=== PATIENT | male | born 1945 | race Caucasian/White ===

== ENCOUNTER 2019-09-12 16:02 | Emergency (ER) | payer MEDICARE, MEDICAID ==
[~2019-09-12] VITALS: Ht 188 cm; Wt 99.1 kg
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
--- NOTE | 2019-09-12 16:34 | NUR ---
BRIAN LEIJA AT BEDSIDE FOR EVAL.
--- NOTE | 2019-09-12 17:46 | NUR ---
ALL TESTS RESULTED PT IS UP FOR RECHECK AT THIS TIME.
--- NOTE | 2019-09-12 17:57 | NUR ---
PT AMBULATED TO THE BR W/ A STEADY GAIT.
[2019-09-12 18:09] VITALS: BP 124/79
[2019-09-12] MEDS ORDERED: NEOSPORIN OINT. PKT 1 PACKET ONE (18:21)
--- NOTE | 2019-09-12 18:40 | NUR ---
Patient given discharge instructions and they have confirmed that they understand the instructions. Patient ambulatory with steady gait.
== END 2019-09-12 19:05 | disposition home or self-care (01) ==
LOC: ED 18:40
DX: S80.211A Abrasion, right knee, initial encounter (principal); S60.512A Abrasion of left hand, initial encounter; M25.511 Pain in right shoulder; M79.661 Pain in right lower leg; M25.551 Pain in right hip; V03.99XA Pedestrian with other conveyance injured in collision with car, pick-up truck or van, unspecified whether traffic or nontraffic accident, initial encounter; Y93.89 Activity, other specified; Y92.410 Unspecified street and highway as the place of occurrence of the external cause; Y99.8 Other external cause status
CPT/HCPCS: 99284